=== PATIENT | male | born 1950 | race Caucasian/White ===

== ENCOUNTER 2019-11-21 18:22 | Emergency (ER) | payer OTHER ==
[2019-11-21 19:38] LABS: #Lymphocytes 0.7 thou/uL (1.20-3.40); #Neutrophils 10.8 thou/uL (1.40-6.50); %Eosinophils 0.1 % (0.0-10.0); %Lymphocytes 5.9 % (21.0-51.0); %Monocytes 8.2 % (0.0-10.0); %Neutrophils 85.7 % (42.0-75.0); Hemoglobin 14.2 g/dL (14.0-18.0); Mean Corpuscular HGB CONC 34.6 g/dL (32.0-36.0); Mean Corpuscular Hemoglobin 31.9 pg (27.0-31.0); Mean Corpuscular Volume 92.2 fL (78.0-98.0); Mean Platelet Volume 8.1 fL (7.4-10.4); Platelet Count 236 thou/uL (130-400); RBC Distribution Width 11.7 % (11.5-14.5); Red Blood Cell (RBC) Count 4.43 mill/uL (4.70-6.10); White Blood Cell (WBC) Count 12.6 thou/uL (4.8-10.8)
--- NOTE | 2019-11-21 19:48 | RAD ---
FRONTAL RADIOGRAPH CHEST: Date: 11-21-2019 Comparison: None History: Cough FINDINGS: There is significant pulmonary parenchymal opacity within the right upper lobe, especially within the inferior aspect of the right upper lobe where there is focal consolidation. No pneumothorax is seen. Left lung appears clear. IMPRESSION: Dense opacity in the right upper lobe with inferior right upper lobe consolidation suggesting infecti ous pneumonitis/pneumonia and/or aspiration. Recommend follow up imaging following treatment to docum ent stability and thus exclude an underlying mass. Code T POS: JUSTIN
[2019-11-21 19:59] LABS: ALT (SGPT) 79 U/L (8-55); AST (SGOT) 98 U/L (5-34); Albumin 3.2 g/dL (3.4-4.8); Alkaline Phosphatase 117 U/L (40-110); Anion Gap 16 mmol/L (10-20); BUN (Urea Nitrogen) 46 mg/dL (8.4-25.7); Bilirubin, Total 1.2 mg/dL (0.2-1.2); Calc. Creatinine Clearance 0 mL/min (70-130); Calcium 8.8 mg/dL (7.8-10.44); Carbon Dioxide 23 mmol/L (23-31); Chloride 94 mmol/L (98-107); Estimated GFR-MDRD 32; Globulin 3.6 g/dL (2.4-3.5); Glucose 188 mg/dL (80-115); Potassium 4.2 mmol/L (3.5-5.1); Protein, Total 6.8 g/dL (5.8-8.1); Sodium 129 mmol/L (136-145)
[2019-11-21] MEDS ORDERED: Cefepime 2 GM VIAL ONE (21:27)
[2019-11-21 22:03] LABS: Bilirubin Negative (Negative); Blood, Urine 1+ (Negative); Clarity Turbid (Clear); Glucose, Urine (Dipstick) Normal (Negative); Ketone, Urine Negative (Negative); Leukocyte Negative Leu/uL (Negative); Mucous/LPF Rare LPF (<2+); Nitrite Negative (Negative); Protein, Urine (Dipstick) 70 mg/dL (Neg-Trace); Renal Epithelial 0-3 HPF (None Seen); Specific Gravity, Urine 1.018 (1.002-1.036); Squamous Epithelial 0-3 HPF (0-3); WBC/HPF 0-3 HPF (0-3); pH, Urine 5.5 (5.0-9.0)
[2019-11-21 22:07] LABS: Bacteria/HPF 1+ HPF (None Seen)
[2019-11-21] MEDS ORDERED: Vancomycin 1 GM/200 ML BAG ONE (22:36)
[2019-11-21 22:55] LABS: SARS-CoV-2 NAA Rapid Test Not Detected (NotDetected)
== END 2019-11-21 23:49 | disposition short-term general hospital (02) ==
LOC: ERS 18:22
DX: A41.9 Sepsis, unspecified organism (principal); J18.9 Pneumonia, unspecified organism; E11.9 Type 2 diabetes mellitus without complications; I10 Essential (primary) hypertension; Z79.84 Long term (current) use of oral hypoglycemic drugs; Z79.899 Other long term (current) drug therapy
CPT/HCPCS: 36415; 71045; 80053; 81003; 81015; 83605; 84484; 85025; 87040; 93005; 94760; 96361; 96365; 96367; J0692; J3370; U0002